=== PATIENT | female | born 1995 | race African-American/Black ===

== ENCOUNTER 2017-10-31 16:01 | Emergency (ER) | payer MEDICAID ==
[~2017-10-31] VITALS: Ht 167.6 cm; Wt 127.5 kg
[~2017-10-31 16:01] MED LIST: CIPRO500 MG PO; FLAGYL500 MG PO; LEVAQUIN 500 M500 M4 PO; NOHOMEMEDICATIONS; PREDNISONE 20 M20 M1 PO; PREDNISONE50 MG PO; PROAIR HFA8.5 GM INH; PROMETHAZINE/C118 ML PO; VENTOLIN HFA INH8 GM IH
[2017-10-31 16:14] LABS: URINE BLOOD 3+ (Negative); URINE CLARITY SL CLOUDY; URINE COLOR DARK YELLOW; URINE GLUCOSE-RANDOM NEGATIVE (Negative); URINE KETONES TRACE (Negative); URINE LEUKOCYTES-REFLEX TRACE (Negative); URINE NITRITE-REFLEX NEGATIVE (Negative); URINE PROTEIN 2+ (Negative)
[2017-10-31 16:16] LABS: URINE BILIRUBIN 2+ (Negative)
[2017-10-31 16:17] LABS: ICTOTEST (BILI CONFIRMATORY) Negative (Negative)
[2017-10-31] MEDS ORDERED: PROGESTERONE100 MG PO (16:17)
[2017-10-31] MEDS ORDERED: [UNRECOGNIZED DRUG - REMARK] (16:17)
[2017-10-31 16:20] LABS: MUCUS >6 Heavy strn/LPF (None Seen); SQUAMOUS >10 Many /LPF (0-3)
[2017-10-31 16:21] LABS: CASTS None Seen /LPF (None Seen); CRYSTALS None Seen /LPF (None Seen); URINE RBC 3-10 Few /HPF (0-2)
[2017-10-31 16:22] LABS: BACTERIA-REFLEX 1-9 Few /HPF (None Seen); URINE WBC-REFLEX 0-5 Rare /HPF (0-5)
[2017-10-31 16:58] LABS: ABSOLUTE BASOPHILS 0.1 thou/uL (0.0-0.2); ABSOLUTE EOSINOPHILS 0.4 thou/uL (0.0-0.7); ABSOLUTE LYMPHOCYTES 3.2 thou/uL (0.8-5.3); ABSOLUTE MONOCYTES 0.5 thou/uL (0.0-1.2); ABSOLUTE NEUTROPHILS 4.6 thou/uL (1.6-8.1); BASOPHILS 0.8 %; EOSINOPHILS 4.5 %; HEMATOCRIT 40.8 % (37.0-47.0); HEMOGLOBIN 13.4 gm/dL (12.0-15.0); LYMPHOCYTES 36.6 %; MCH 30.5 pg (26.0-34.0); MCHC 32.8 g/dL (28.0-37.0); MCV 92.9 fL (80.0-100.0); MONOCYTES 5.9 %; MPV 7.9 fl. (7.2-11.1); NUCLEATED RBCS 0 /100WBC; PLATELET COUNT* 205 thou/uL (150-400); POLYS 52.2 %; RBC 4.39 mil/uL (4.20-5.00); RDW-CV 15.4 % (10.5-14.5); WBC 8.8 thou/uL (4.0-11.0)
[2017-10-31 17:05] LABS: CALCIUM 8.6 mg/dL (8.5-10.1); CREATININE 1.2 mg/dL (0.6-1.3); POTASSIUM 3.3 mmol/L (3.5-5.1)
[2017-10-31 17:09] LABS: ALBUMIN 3.2 g/dL (3.4-5.0); TOTAL BILIRUBIN 0.2 mg/dL (<0.1-1.0); TOTAL PROTEIN 6.5 g/dL (6.4-8.2)
[2017-10-31] MEDS ORDERED: ZOFRAN4 MG PO (17:28)
[2017-10-31 17:48] VITALS: BP 147/78
== END 2017-10-31 17:49 | disposition home or self-care (01) ==
LOC: M.ERS 16:01
PROVIDERS: Nurse Practitioner Family
DX: K59.00 Constipation, unspecified (principal); R10.30 Lower abdominal pain, unspecified; R11.2 Nausea with vomiting, unspecified; F17.210 Nicotine dependence, cigarettes, uncomplicated

== ENCOUNTER 2019-08-04 20:05 | Emergency (ER) | payer OTHER, MEDICAID ==
[~2019-08-04] VITALS: Ht 167.6 cm; Wt 113.4 kg
[~2019-08-04 20:05] MED LIST changes: +PROGESTERONE100 MG PO; +ZOFRAN4 MG PO; +[UNRECOGNIZED DRUG - REMARK]
[2019-08-04 20:22] LABS: URINE BILIRUBIN NEGATIVE (Negative); URINE BLOOD 3+ (Negative); URINE CLARITY CLEAR; URINE COLOR YELLOW; URINE GLUCOSE-RANDOM NEGATIVE (Negative); URINE KETONES NEGATIVE (Negative); URINE LEUKOCYTES-REFLEX NEGATIVE (Negative); URINE NITRITE-REFLEX NEGATIVE (Negative); URINE PROTEIN NEGATIVE (Negative); URINE SPECIFIC GRAVITY 1.025 (1.005-1.030); URINE UROBILINOGEN 0.2 E.U./dl (0.2-1.0)
[2019-08-04 20:26] LABS: CASTS None Seen /LPF (None Seen); CRYSTALS None Seen /LPF (None Seen); MUCUS 0-3 Light strn/LPF (None Seen); SQUAMOUS 4-10 Moderate /LPF (0-3)
[2019-08-04 20:27] LABS: BACTERIA-REFLEX 1-9 Few /HPF (None Seen); URINE RBC 3-10 Few /HPF (0-2); URINE WBC-REFLEX 0-5 Rare /HPF (0-5)
[2019-08-04] MEDS ORDERED: FLAGYL500 M1 PO (21:47)
[2019-08-04 22:44] VITALS: BP 136/80
[2019-08-07 22:07] LABS: HSV 1 DNA Negative (Negative); HSV 2 DNA Negative (Negative)
== END 2019-08-04 22:44 | disposition short-term general hospital (02) ==
LOC: M.ERS 20:05
PROVIDERS: Nurse Practitioner Family
DX: N76.0 Acute vaginitis (principal); B96.89 Other specified bacterial agents as the cause of diseases classified elsewhere; F17.210 Nicotine dependence, cigarettes, uncomplicated

== ENCOUNTER 2019-10-13 16:34 | Emergency (ER) | payer OTHER ==
[~2019-10-13] VITALS: Ht 167.6 cm; Wt 113.4 kg
[~2019-10-13 16:34] MED LIST changes: +FLAGYL500 M1 PO
[2019-10-13 16:41] VITALS: BP 151/91
== END 2019-10-13 17:24 | disposition home or self-care (01) ==
LOC: M.ERS 16:34
DX: R11.2 Nausea with vomiting, unspecified (principal); F17.210 Nicotine dependence, cigarettes, uncomplicated; Y08.89XA Assault by other specified means, initial encounter; Y93.89 Activity, other specified; Y92.89 Other specified places as the place of occurrence of the external cause; Y99.8 Other external cause status

== ENCOUNTER 2020-03-12 17:28 | Emergency (ER) | payer OTHER ==
[~2020-03-12] VITALS: Ht 167.6 cm; Wt 124.7 kg
[2020-03-12] MEDS ORDERED: FAMOTIDINE 20 M20 MG PO (19:26)
[2020-03-12] MEDS ORDERED: PREDNISONE 20 M20 MG PO (19:26)
[2020-03-12] MEDS ORDERED: BENADRYL25 MG PO (19:26)
[2020-03-12 19:35] VITALS: BP 142/90
== END 2020-03-12 19:36 | disposition home or self-care (01) ==
LOC: M.ERS 17:28
DX: L23.9 Allergic contact dermatitis, unspecified cause (principal); F17.210 Nicotine dependence, cigarettes, uncomplicated